=== PATIENT | male | born 1995 | race Caucasian/White ===

== ENCOUNTER 2018-10-11 17:03 | Emergency (ER) | payer MEDICAID ==
--- NOTE | 2018-10-11 17:59 | ED Physician Chart ---
ED Chief Complaint/HPI - Patient Information Date Seen:: 10/11/18 Time Seen:: 17:30 Chief Complaint:: Scrotal Pain History of Present Illness:: onset x one week of intermittent scrotal and right testicular pain; pt denies trauma, LOC, ALOC, AMS, H/As, S/T, neck pain, cough, C/P, SOB, Abd. pain, A/N/V/ D/C, fever, chills, bleeding, penile discharge, or urinary s/s; pt is eating and urinating well; pt last urinated one hour GEOLOGICAL SCOUT; pt's last tetanus shot: < 5 years; UTD Allergies:: Allergies Allergy/AdvReac Type Severity Reaction Status Date / Time No Known Allergies Allergy Verified 10/11/18 17:45 Vitals:: Vital Signs - 8 hr 10/11/18 17:46 Temp 98.5 F HR 83 RR 18 BP 137/84 O2 Sat % 98 Historian:: Patient, Friend Review:: Nurse's Note Reviewed, Old Chart Reviewed <Reuben Talbert - Last Filed: 10/11/18 17:55> - Patient Information History of Present Illness:: Patient had urinary burning sensation in February 2018 when his girlfriend was diagnosed with chlamydia. The burning sensation later resolved after treatment with Azithromycin 1g. About 10 days ago, patient noticed pain and tenderness of right testicle. [facility]. Azithromycin 1g and Rocephin 250mg IM were given. However, pain became worse today. Patient denied fever or chills. His girlfriend was asymptomatic tested for urine and urethral swab 5 days ago, results pending. Allergies:: Allergies Allergy/AdvReac Type Severity Reaction Status Date / Time No Known Allergies Allergy Verified 10/11/18 17:45 Vitals:: Vital Signs - 8 hr 10/11/18 17:46 Temp 98.5 F HR 83 RR 18 BP 137/84 O2 Sat % 98 <Ruthann Pittman - Last Filed: 10/12/18 12:15> ED Review of Systems - Review of Systems General/Constitutional: No fever, No chills, No weight loss, No weakness, No diaphoresis, No edema, No loss of appetite Skin: No skin lesions, No rash, No bruising Head: No headache, No light-headedness Eyes: No loss of vision, No pain, No diplopia ENT: No earache, No nasal drainage, No sore throat, No tinnitus Neck: No neck pain, No swelling, No thyromegaly, No stiffness, No mass noted Cardio Vascular: No chest pain, No palpitations, No PND, No orthopnea, No edema Pulmonary: No SOB, No cough, No sputum, No wheezing GI: No nausea, No vomiting, No diarrhea, No pain, No melena, No hematochezia, No constipation, No hematemesis G/U: No dysuria, No frequency, No hematuria, No nacturia Musculoskeletal: No bone or joint pain, No back pain, No muscle pain Endocrine: No polyuria, No polydipsia Psychiatric: No prior psych history, No depression, No anxiety, No suicidal ideation, No homicidal ideation, No auditory hallucination, No visual hallucination Hematopoietic: No bruising, No lymphadenopathy Allergic/Immuno: No urticaria, No angioedema Neurological: No syncope, No focal symptoms, No weakness, No paresthesia, No headache, No seizure, No dizziness, No confusion, No vertigo <Reuben Talbert - Last Filed: 10/11/18 17:55> ED Past Medical History - Past Medical History Obtainable: Yes Past Medical History: No significant medical hx Family History: None Social History: Non Smoker, No Alcohol, No Drug Use, Single Surgical History: None Psychiatricy History: None Medication: Reviewed <Reuben Talbert - Last Filed: 10/11/18 17:55> Family Medical History - Family Member Mother History Unknown: Yes <Reuben Talbert - Last Filed: 10/11/18 17:55> ED Physical Exam - Physical Examination General/Constitutional: Awake, Well-developed, well-nourished, Alert, No distress, GCS 15, Non-toxic appearing, Ambulatory Head: Atraumatic Eyes: Lids, conjuctiva normal, PERRL, EOMI Skin: Nl inspection, No rash, No skin lesions, No ecchymosis, Well hydrated, No lymphadenopathy ENMT: External ears, nose nl, TM canals nl, Nasal exam nl, Lips, teeth, gums nl , Oropharynx nl, Tonsils nl Neck: Nontender, Full ROM w/o pain, No JVD, No nuchal rigidity, No bruit, No mass, No stridor Respiratory: Nl effort/Exclusion, Clear to Auscultation, No Wheeze/Rhonchi/Rales Cardio Vascular: RRR, No murmur, gallop, rubs, NL S1 S2, Carotid/Femoral/Distal pulses equal bilaterally GI: No tenderness/rebounding/guarding, No organomegaly, No hernia, Normal BS's, Nondistended, No mass/bruits, No McBurney tenderness, Rectum exam nl : No CVA tenderness Other comments:: right epididymis tenderness Extremities: No tenderness or effusion, Full ROM, normal strength in all extremities, No edema, Normal digits & nails Neuro/Psych: Alert/oriented, DTR's symmetric, Normal sensory exam, Normal motor strength, Judgement/insight normal, Mood normal, Normal gait, No focal deficits Misc: Normal back, No paraspinal tenderness <Reuben Talbert - Last Filed: 10/11/18 17:55> ED Assessment - Assessment General Assessment: Epididymitis likely due to STD Leukocytosis Dehydration Assessment/Comments:: CBC, CMP GC culture Rocephin 1g IV Azithromycin 1g PO NS 1L IV bolus <Ruthann Pittman - Last Filed: 10/12/18 12:15> ED Septic Shock - . Is Septic Shock (SBP<90, OR Lactate>4 mmol\L) present?: No - <6hrs of presentation: Vital Signs: Vital Signs - 8 hr 10/11/18 17:46 Temp 98.5 F HR 83 RR 18 BP 137/84 O2 Sat % 98 <Reuben Talbert - Last Filed: 10/11/18 17:55> - . Is Septic Shock (SBP<90, OR Lactate>4 mmol\L) present?: No - <6hrs of presentation: Vital Signs: Vital Signs - 8 hr 10/11/18 17:46 Temp 98.5 F HR 83 RR 18 BP 137/84 O2 Sat % 98 <Ruthann Pittman - Last Filed: 10/12/18 12:15> ED Reassessment (Disposition) - Reassessment Reassessment Condition:: Improved - Diagnosis Diagnosis:: Scrotal Pain; Right Epididymitis <Reuben Talbert - Last Filed: 10/11/18 17:55> - Reassessment Reassessment:: Patient felt better after treatment D/c home F/u PCP or return to ER if symptoms worsen Reassessment Condition:: Improved - Aftercare/Follow up Instructions Medication Prescribed:: Levaquin 750mg PO qd x 10 days - Patient Disposition Discharge/Transfer:: Home <Ruthann Pittman - Last Filed: 10/12/18 12:15>
[2018-10-11 20:26] LABS: % EOSINOPHILS 0.4 % (0.0-5.0); % LYMPHOCYTES 13.2 % (20.0-50.0); % MONOCYTES 6.8 % (2.0-10.0); % NEUTROPHILS 78.6 % (40.0-80.0); BASOPHILE ABSOLUTE 0.1 Th/cumm (0-0.2); EOSINOPHILE ABSOLUTE 0.1 Th/cmm (0.1-0.4); HEMATOCRIT 46.6 % (41.0-60); HEMOGLOBIN 15.3 gm/dL (12-16); LYMPHOCYTE ABSOLUTE 1.7 Th/cmm (1.5-3.0); MEAN CELL VOLUME 87.8 fl (80-99); MEAN CORPUSCULAR HEMOGLOBIN 28.8 pg (26.0-30.0); MEAN CORPUSCULAR HGB CONC 32.8 pg (28.0-36.0); MEAN PLATELET VOLUME 7.5 fl; MONOCYTE ABSOLUTE 0.9 Th/cmm (0.3-1.0); NEUTROPHILE ABSOLUTE 9.9 Th/cmm (1.8-8.0); PLATELET COUNT 253 Th/cmm (150-400); RED BLOOD COUNT 5.31 Mil/cmm (4.30-5.70); RED CELL DISTRIBUTION WIDTH 12.1 % (11.5-20.0); WHITE BLOOD COUNT 12.7 Th/cmm (4.8-10.8)
[2018-10-11 20:45] LABS: ALB/GLOB RATIO 1.6 (1.0-1.8); ALBUMIN 4.4 gm/dL (4.2-5.5); ALKALINE PHOSPHATASE 74 U/L (34-104); ANION GAP 13.2 (7.0-16.0); BILIRUBIN,TOTAL 0.5 mg/dL (0.3-1.0); BUN - UREA NITROGEN 22 mg/dL (7-25); CALCIUM SERUM 9.6 mg/dL (8.6-10.3); CARBON DIOXIDE 24.4 mEq/L (21.0-31.0); CHLORIDE 105 mEq/L (98-107); CREATININE - SERUM 0.9 mg/dL (0.7-1.3); GFR AFRICAN-AMERICAN > 60.0 ml/min (>90); GFR NON AFRICAN-AMERICAN > 60.0 ml/min; GLUCOSE 108 mg/dL (70-105); POTASSIUM SERUM 3.6 mEq/L (3.5-5.1); SGOT 27 U/L (13-39); SGPT/ALT 15 U/L (7-52); SODIUM SERUM 139 mEq/L (136-145); TOTAL PROTEIN,SERUM 7.2 gm/dL (6.0-8.3)
[2018-10-11] MEDS ORDERED: cefTRIAXone 1 GM in Sodium Chloride 0.9% 50 ML IV ONE (21:13)
[2018-10-11] MEDS ORDERED: Sodium Chloride 0.9% 1,000 ML IV ONE (21:14)
[2018-10-11 21:58] LABS: URINE SOURCE MIDSTREAM
[2018-10-11 22:13] LABS: URINE BILIRUBIN NEGATIVE (NEGATIVE); URINE BLOOD NEGATIVE (NEGATIVE); URINE CLARITY CLEAR (CLEAR); URINE COLOR YELLOW; URINE GLUCOSE (UA) NEGATIVE (NEGATIVE); URINE KETONE NEGATIVE (NEGATIVE); URINE LEUKOCYTE ESTERASE NEGATIVE (NEGATIVE); URINE MICROSCOPIC INDICATED? NO; URINE NITRATE NEGATIVE (NEGATIVE); URINE PROTEIN NEGATIVE (NEGATIVE); URINE UROBILINOGEN 0.2 E.U./dL (0.2 - 1.0)
--- NOTE | 2018-10-12 10:32 | Diagnostic Imaging Report ---
Ultrasound scrotum HISTORY: Right testicular and right scrotal pain for 10 days COMPARISON: None Technique/procedure: Sonography of the scrotum and contents was performed in multiple planes. FINDINGS: The right testicle measures 4.0 x 2.8 x 3.3 cm and demonstrates a slightly heterogenous echotexture. No evidence of focal lesions. There is a moderate right hydrocele with septations. There is a probable small right varicocele. Accurate measurements of the right epididymal head were not performed. There is heterogeneity of the right extratesticular region. The left testicle measures 3.6 x 4.6 x 2.2 cm and demonstrates a mildly heterogeneous echotexture. No focal lesions. The left epididymal head measures 1.9 cm. Small left hydrocele is noted. There may be decreased Vascular to the left testicle is noted. IMPRESSION: Vascular flow to both testicles noted. There may be decreased vascular flow to left testicle. There was suboptimal assessment of the vasculature on the left side. If indicated repeat examination is recommended. Bilateral hydroceles, right larger than left. There appear to be septations within the right hydrocele. Infectious or inflammatory process cannot be excluded. Suspect small right varicocele. Please correlate clinically. Suboptimal assessment of right epididymal head. There is prominent right extratesticular soft tissue density . Findings may be related to patient's varicocele. An enlarged epididymis and epididymitis cannot be excluded. Clinical correlation and short-term follow-up is needed.
== END 2018-10-11 22:54 | disposition home or self-care (01) ==
LOC: ER 17:03
DX: N45.1 Epididymitis (principal); N50.82 Scrotal pain; E86.0 Dehydration; D72.829 Elevated white blood cell count, unspecified
CPT/HCPCS: 99284; 96365; 96372; 76870; 36415; 85025; 81003; 80053; 87491; J1885; J0696; J7030; Z7502